=== PATIENT | female | born 1975 | race Asian ===

== ENCOUNTER 2017-07-26 15:52 | Outpatient (CLI) | payer MEDICARE, MEDICAID ==
[2017-07-26 16:46] LABS: BASOPHILS # (AUTO) 0.1 X10'3 (0-0.2); BASOPHILS % (AUTO) 1.3 % (0-1); EOSINOPHILS # (AUTO) 0.1 X10'3 (0-0.9); EOSINOPHILS % (AUTO) 1.7 % (0-6); HEMATOCRIT 40.8 % (35.0-45.0); HEMOGLOBIN 14.3 g/dl (12.0-16.0); LYMPHOCYTES # (AUTO) 2.5 X10'3 (1.1-4.8); LYMPHOCYTES % (AUTO) 34.2 % (21-51); MEAN CORPUSCULAR HEMOGLOBIN 29.9 PG (27.0-31.0); MEAN CORPUSCULAR HGB CONC 34.9 % (33.0-36.5); MEAN CORPUSCULAR VOLUME 85.6 FL (78-98); MEAN PLATELET VOLUME 9.7 FL (7.4-10.4); MONOCYTES # (AUTO) 0.4 X10'3 (0-0.9); MONOCYTES % (AUTO) 4.9 % (2-12); NEUTROPHILS # (AUTO) 4.2 X10'3 (1.8-7.7); NEUTROPHILS % (AUTO) 57.9 % (42-75); PLATELET COUNT 219 X10'3 (140-440); RED BLOOD COUNT 4.77 X10'6 (4.20-5.60); WHITE BLOOD COUNT 7.3 X10'3 (4.5-11.0)
[2017-07-26 17:13] LABS: ALANINE AMINOTRANSFERASE 46 U/L (12-78); ALBUMIN 3.6 G/DL (3.4-5.0); ALBUMIN/GLOBULIN RATIO 0.9 (1.1-1.5); ALKALINE PHOSPHATASE 61 IU/L (46-116); AMYLASE 43 U/L (25-115); ANION GAP 9 (8-16); ASPARTATE AMINO TRANSFERASE 24 U/L (10-37); BILIRUBIN,TOTAL 0.3 MG/DL (0.1-1.0); BLOOD UREA NITROGEN 14 MG/DL (7-18); BUN/CREATININE RATIO 21.5 (6.6-38.0); CALCIUM 9.1 MG/DL (8.5-10.1); CHLORIDE 105 MMOL/L (99-107); CHOL/HDL RATIO 6.1 (0.00-4.99); CHOLESTEROL 212 MG/DL (0-200); CREATININE 0.65 MG/DL (0.40-0.90); GLUCOSE 114 MG/DL (70-104); HDL CHOLESTEROL 35 MG/DL (35-60); LDL CHOLESTEROL 105 MG/DL (50-100); LIPASE 155 U/L (73-393); POTASSIUM 3.8 MMOL/L (3.5-5.1); SODIUM 141 MMOL/L (135-145); TOTAL CARBON DIOXIDE 27.3 MMOL/L (24-32); TOTAL PROTEIN 7.7 G/DL (6.4-8.2); TRIGLYCERIDES 475 MG/DL (20-135); eGFR > 90 ML/MIN
== END 2017-07-26 23:59 | disposition home or self-care (01) ==
LOC: LAB 15:52
PROVIDERS: ATTEND Registered Nurse
DX: R60.9 Edema, unspecified (principal); R07.9 Chest pain, unspecified; R51 Headache
CPT/HCPCS: 36415; 80053; 80061; 82150; 83690; 84443; 85025

== ENCOUNTER 2019-06-09 07:58 | Outpatient (CLI) | payer MEDICARE, MEDICAID ==
[2019-06-09 08:53] LABS: BASOPHILS % (AUTO) 0.6 % (0-1); EOSINOPHILS # (AUTO) 0.2 X10'3 (0-0.9); EOSINOPHILS % (AUTO) 3.4 % (0-6); HEMOGLOBIN 14.3 g/dl (12.0-16.0); LYMPHOCYTES # (AUTO) 2.6 X10'3 (1.1-4.8); LYMPHOCYTES % (AUTO) 35.4 % (21-51); MEAN CORPUSCULAR HEMOGLOBIN 30.7 PG (27.0-31.0); MEAN CORPUSCULAR VOLUME 87.8 FL (78-98); MEAN PLATELET VOLUME 8.3 FL (7.4-10.4); MONOCYTES # (AUTO) 0.3 X10'3 (0-0.9); MONOCYTES % (AUTO) 4.1 % (2-12); NEUTROPHILS # (AUTO) 4.1 X10'3 (1.8-7.7); NEUTROPHILS % (AUTO) 56.5 % (42-75); PLATELET COUNT 255 X10'3 (140-440); RED BLOOD COUNT 4.67 X10'6 (4.20-5.60); RED CELL DISTRIBUTION WIDTH 12.3 % (11.5-14.5); WHITE BLOOD COUNT 7.2 X10'3 (4.5-11.0)
[2019-06-09 09:10] LABS: ALANINE AMINOTRANSFERASE 50 U/L (12-78); ALBUMIN 3.7 G/DL (3.4-5.0); ALKALINE PHOSPHATASE 44 IU/L (46-116); ANION GAP 10 (8-16); ASPARTATE AMINO TRANSFERASE 31 U/L (10-37); BILIRUBIN,TOTAL 0.7 MG/DL (0.1-1.0); BLOOD UREA NITROGEN 10 MG/DL (7-18); BUN/CREATININE RATIO 16.4 (6.6-38.0); CALCIUM 8.5 MG/DL (8.5-10.1); CHLORIDE 108 MMOL/L (99-107); CHOL/HDL RATIO 4.4 (0.00-4.99); CHOLESTEROL 177 MG/DL (0-200); CREATININE 0.61 MG/DL (0.40-0.90); GLUCOSE 105 MG/DL (70-104); HDL CHOLESTEROL 40 MG/DL (35-60); LDL CHOLESTEROL 94 MG/DL (50-100); POTASSIUM 4.2 MMOL/L (3.5-5.1); SODIUM 143 MMOL/L (135-145); TOTAL CARBON DIOXIDE 25.4 MMOL/L (24-32); TOTAL PROTEIN 7.4 G/DL (6.4-8.2); TRIGLYCERIDES 308 MG/DL (20-135); eGFR > 90 ML/MIN
== END 2019-06-09 23:59 | disposition home or self-care (01) ==
LOC: LAB 07:58
PROVIDERS: ATTEND Registered Nurse
DX: N92.6 Irregular menstruation, unspecified (principal); E11.9 Type 2 diabetes mellitus without complications; E78.5 Hyperlipidemia, unspecified; R60.9 Edema, unspecified; F33.2 Major depressive disorder, recurrent severe without psychotic features; R51 Headache; Z68.34 Body mass index [BMI] 34.0-34.9, adult
CPT/HCPCS: 36415; 80053; 80061; 84443; 85025

== ENCOUNTER 2020-06-03 10:18 | Outpatient (CLI) | payer MEDICARE, MEDICAID | END 2020-06-03 23:59 | disposition home or self-care (01) | LOC: RAD 10:18 | PROVIDERS: ATTEND Registered Nurse | DX: M50.122 Cervical disc disorder at C5-C6 level with radiculopathy (principal); M51.17 Intervertebral disc disorders with radiculopathy, lumbosacral region; M25.78 Osteophyte, vertebrae | CPT/HCPCS: 72050; 72110 ==

== ENCOUNTER 2021-04-22 13:40 | Outpatient (CLI) | payer MEDICARE, MEDICAID ==
[2021-04-22 14:25] LABS: ABG BASE EXCESS -1.1 mmol/L (-2.0-2.0); ABG OXYGEN SATURATION 96.7 % (94-97); ABG PCO2 (T) 41.3 mmHg (32.0-45.0); ALLEN'S TEST POSITIVE; FCOHb 0.6 % (0.0-3.9); FMetHb 0.2 % (0.0-1.5); FO2Hb 95.9 % (94-97); TOTAL HEMOGLOBIN 14.4 G/dl (12.0-16.0)
== END 2021-04-22 23:59 | disposition home or self-care (01) ==
LOC: RT 13:40
PROVIDERS: ATTEND Internal Medicine Cardiovascular Disease
DX: R06.02 Shortness of breath (principal)
CPT/HCPCS: 36600; 82803; 85018; 94010; 94727; 94729